=== PATIENT | male | born 1935 | race Caucasian/White ===

== ENCOUNTER → 2018-12-25 | Outpatient (CLI) | payer MEDICARE, SELFPAY ==
--- NOTE | 2018-12-25 08:49 | RAD_ITS ---
CLINICAL HISTORY: Male, 83 years old. Diarrhea/constipation for 2 months. PROCEDURE: Small bowel follow-through examination. FLUOROSCOPY TIME (if supplied): (0:45) minutes/seconds. 5 images were obtained. TECHNIQUE: (All elements of maximal sterile barrier technique followed, including US elements as applicable) The patient ingested barium. A small bowel follow-through examination wasn't obtained. FINDINGS: On the food services manager film, a moderate amount of fecal material is seen throughout the colon. Degenerative changes of the lumbar spine with mild dextro scoliosis. Right total hip replacement. Multiple diverticula are seen within the small bowel loops in the jejunum and ileum. The terminal ileum is opacified within 60 minutes. The terminal ileum is unremarkable. RAD/Small Bowel Series Only IMPRESSION: Multiple small bowel diverticula as described. Electronically Signed: Sekou Lafleur, at 10:30 EDT , Service support ,
== END | disposition home or self-care (01) ==
PROVIDERS: Family Provider Internal Medicine Infectious Disease; PCP Internal Medicine Infectious Disease; Referring Provider Internal Medicine Gastroenterology; Visit Provider Internal Medicine Gastroenterology
DX: R19.7 Diarrhea, unspecified (principal); R10.9 Unspecified abdominal pain
CPT/HCPCS: 74250

== ENCOUNTER → 2019-02-04 11:22 | Outpatient (CLI) | payer MEDICARE, SELFPAY ==
[2019-02-10 11:07] LABS: Fats, Neutral Normal (.); Fats, Total Normal (.)
== END ==
PROVIDERS: Family Provider Internal Medicine Infectious Disease; PCP Internal Medicine Infectious Disease; Referring Provider Internal Medicine Gastroenterology; Visit Provider Internal Medicine Gastroenterology
DX: R19.7 Diarrhea, unspecified (principal); K86.89 Other specified diseases of pancreas; R10.9 Unspecified abdominal pain
CPT/HCPCS: 82705

== ENCOUNTER → 2019-04-30 06:34 | Outpatient (CLI) | payer MEDICARE, SELFPAY ==
--- NOTE | 2019-04-30 06:39 | ECHOD_ITS ---
Reason For Study: CHEST PRESSURE Procedure This was a 2D Doppler, Color Flow transthoracic echocardiogram. Exam performed in department. Left Ventricle Normal LV size. The estimated ejection fraction is 55 %. No evidence for diastolic dysfunction. No regional wall motion abnormalities noted. Right Ventricle Normal RV size. Normal systolic function. Atria The left atrium is mildly enlarged. The right atrium is mildly enlarged. No doppler evidence for ASD. Mitral Valve There is no mitral valve stenosis. Mild (1+) mitral valve insufficiency. Tricuspid Valve There is no tricuspid stenosis. Trivial eccentric tricuspid valve insufficiency. Pulmonary artery systolic pressure is 30 mmHg. Aortic Valve Trisinus/trileaflet aortic valve. There is no aortic stenosis. Mild (1+) aortic valve insufficiency. Pulmonic Valve There is no pulmonic valvular stenosis. Mild pulmonic valve insufficiency identified. Great Vessels Normal aortic root. Pericardium/Pleural No pericardial effusion. MMode/2D Measurements & Calculations LVIDd: 5.1 cm IVSd: 1.0 cm Ao root diam: 4.0 cm LVIDs: 3.7 cm LVPWd: 1.1 cm RVDd: 4.0 cm FS: 28.4 % LAV(MOD-bp): 61.7 ml LVAd ap4: 30.4 cm2 SV(MOD-sp4): 49.9 ml LAV(MOD-bp) Indexed: 33.3 ml/m2 EDV(MOD-sp4): 96.8 ml LAV(MOD-sp2): 69.2 ml EDV(sp4-el): 100.0 ml LAV(MOD-sp4): 54.6 ml LVAs ap4: 19.7 cm2 ESV(MOD-sp4): 46.9 ml ESV(sp4-el): 48.6 ml EF(MOD-sp4): 51.6 % EF(sp4-el): 51.4 % SV(sp4-el): 51.4 ml LA A4 area: 19.5 cm2 LA dimension(2D): 4.2 cm RA A4 area: 18.8 cm2 Time Measurements MV dec time: 0.39 sec Doppler Measurements & Calculations MV E max antonio: 52.7 cm/sec Lat Peak E' Antonio: 6.1 cm/sec Med Peak E' Antonio: 4.8 cm/sec MV A max antonio: 36.5 cm/sec E/E' lat: 8.7 E/E' med: 10.9 MV E/A: 1.4 Ao V2 max: 119.1 cm/sec AI max antonio: 396.7 cm/sec LV V1 max: 65.4 cm/sec Ao max P.7 mmHg AI max P.0 mmHg LV V1 max P.7 mmHg AI dec slope: 209.4 cm/sec2 AI P1/2t: 554.9 msec PA V2 max: 70.4 cm/sec TR max antonio: 243.8 cm/sec TR max P.8 mmHg Interpretation Summary The estimated ejection fraction is 55 %. No evidence for diastolic dysfunction. Mild (1+) mitral valve insufficiency. Trivial eccentric tricuspid valve insufficiency. Pulmonary artery systolic pressure is 30 mmHg. Mild (1+) aortic valve insufficiency. Mild pulmonic valve insufficiency identified. Ordering Physician: LOI ROGERS Referring Physician: LA ARRIOLA Performed By: Massiel Galicia, RDCS, RVT
--- NOTE | 2019-04-30 16:34 | STRESSREP_ITS ---
Stress Test Report Date: 04/30/2019 Procedure: Exercise tolerance test/imaging study Indications: Chest pressure Consent: Per the patient Procedure: The patient exercised on a Bo protocol for 6 minutes achieving a peak heart rate of 144 bpm (104 % predicted maximal heart rate) with a peak blood pressure 170/90 mmHg and a peak MET capacity of 7 METs. The baseline ECG demonstrated normal sinus rhythm, frequent PACs. The peak exercise ECG demonstrated sinus tachycardia with frequent PACs. No significant ischemic changes. EKG during recovery revealed no significant ischemic changes. Occasional PVCs [There were no significant cardiac dysrhythmias pretest, during exercise, or recovery]. The functional capacity was considered normal for age. There was [no complaint of chest discomfort during exercise or recovery]. The examination was discontinued secondary to achieving target heart rate. Impression: 1. Technically adequate (percent predicted maximal heart rate greater than 85%) exercise tolerance test 2. Stress test is negative for exercise-induced EKG changes of ischemia 3. The test test is negative for exercise-induced chest pain 4. Functional capacity is normal for age 5. Nuclear images pending Myocardial perfusion imaging study: Technique: The patient was injected with 10 mCi of technetium 99m Cardiolite and subsequently rest SPECT Cardiolite nuclear imaging was obtained in the horizontal long, vertical long, and short axis views. The patient exercised on a Bo protocol. Please see above for details. The patient was injected with 30 mCi of technetium 99m Cardiolite and subsequently stress SPECT Cardiolite nuclear imaging was obtained in the horizontal long, vertical long, and short axis views. A gated Cardiolite study at peak stress was obtained. Interpretation: Rest and stress SPECT Cardiolite nuclear imaging status post realignment, normalization, and attenuation correction, demonstrates normal myocardial radioisotope uptake. The gated Cardiolite study demonstrates no regional wall motion abnormalities. The reported LVEF is 52%. Impression: 1. There is no evidence of significant ischemia or infarction. 2. The gated Cardiolite study reports an LVEF of 52 %. This note was generated with [employer] software. It may contain incorrect words, spelling, and punctuation that were not noted in checking the note before signing.
== END ==
PROVIDERS: Family Provider Internal Medicine Infectious Disease; PCP Internal Medicine Infectious Disease
DX: R07.89 Other chest pain (principal)
CPT/HCPCS: 78452; 93017; 93306; A9500; A4216